=== PATIENT | female | born 1970 | race African-American/Black ===

== ENCOUNTER 2016-06-14 08:08 | Emergency (ER) | payer BC ==
[2016-06-14] MEDS ORDERED: ACETAMINOPHEN WITH CODEINE #3 TABLET PO ONE (08:42)
--- NOTE | 2016-06-14 08:43 | ER Document Report ---
ED Extremity Problem, Lower - General Chief Complaint: Leg Pain Stated Complaint: LEFT LEG PAIN Time Seen by Provider: 06/14/16 08:34 Mode of Arrival: Ambulatory Information source: Patient Notes: Patient is a 46-year-old -Romanian female who presents to the ER today for left calf/ankle pain that woke her up from sleep this morning. Patient denies any injury. She states that she does sit a lot at work and has been on multiple trips back and forth to [place], a four-hour drive recently and does also have an IUD. She denies any chest pain or shortness of breath. TRAVEL OUTSIDE OF THE [place] IN LAST 30 DAYS: No - Related Data Allergies/Adverse Reactions: Sulfa (Sulfonamide Antibiotics) Allergy (Verified 06/14/16 08:19) stomach pain Past Medical History - General Information source: Patient - Social History Smoking Status: Unknown if Ever Smoked Family History: Reviewed & Not Pertinent Patient has suicidal ideation: No Patient has homicidal ideation: No - Past Medical History Cardiac Medical History: Reports: Hx Hypertension Pulmonary Medical History: Reports: Hx Asthma Renal/ Medical History: Denies: Hx Peritoneal Dialysis Past Surgical History: Reports: Hx Section - x1 - Immunizations Hx Diphtheria, Pertussis, Tetanus Vaccination: Yes - 2012 Review of Systems - Review of Systems Constitutional: No symptoms reported EENT: No symptoms reported Cardiovascular: No symptoms reported Respiratory: No symptoms reported Gastrointestinal: No symptoms reported Genitourinary: No symptoms reported Female Genitourinary: No symptoms reported Musculoskeletal: See HPI Skin: No symptoms reported Hematologic/Lymphatic: See HPI Neurological/Psychological: No symptoms reported Physical Exam - Vital signs Vitals: Temp Pulse Resp BP Pulse Ox 98.4 F 87 18 153/108 H 99 06/14/16 08:19 06/14/16 08:19 06/14/16 08:19 06/14/16 08:19 06/14/16 08:19 - Notes Notes: PHYSICAL EXAMINATION: GENERAL: appears uncomfortable, but in no acute distress. HEAD: Atraumatic, normocephalic. EYES: Pupils equal round and reactive to light, extraocular movements intact, sclera anicteric, conjunctiva are normal. NECK: Normal range of motion, supple without lymphadenopathy LUNGS: CTAB and equal. No wheezes rales or rhonchi. HEART: Regular rate and rhythm without murmurs EXTREMITIES: tender over left calf, Romulo's sign positive, Normal range of motion, no pitting edema. No cyanosis. NEUROLOGICAL: Cranial nerves grossly intact. Normal sensory/motor exams. PSYCH: Normal mood, normal affect. SKIN: Warm, Dry, normal turgor, no ecchymosis, warmth, rashes or lesions noted Course - Re-evaluation Re-evalutation: 06/14/16 10:12 X-ray of the ankle reveals no acute pathology. doppler tech verbally reported superficial clot in greater saphenous vein of left ankle. Pt started on xarelto. 06/14/16 10:37 - Vital Signs Vital signs: Temp Pulse Resp BP Pulse Ox 98.4 F 87 18 153/108 H 99 06/14/16 08:19 06/14/16 08:19 06/14/16 08:19 06/14/16 08:19 06/14/16 08:19 Discharge - Discharge Clinical Impression: Greater saphenous vein embolism Qualifiers: Laterality: left Qualified Code(s): I82.812 - Embolism and thrombosis of superficial veins of left lower extremities Condition: Stable Disposition: HOME, SELF-CARE Additional Instructions: Please take xarelto 15mg twice daily for 21 days, following up with primary care provider before running out to see if they'd like to change regimen. Return immediately for any new or worsening symptoms such as shortness of breath or chest pain. Follow up with primary care provider, call tomorrow to make followup appointment. Prescriptions: Acetaminophen with Codeine [Tylenol #3 Tablet] 1 each PO Q4HP PRN #14 tablet PRN Reason: Rivaroxaban [Xarelto 15 mg Tablet] 15 mg PO BID #42 tablet Forms: Return to Work
[2016-06-14] MEDS ORDERED: RIVAROXABAN 15 MG TABLET PO ONE (09:59)
[2016-06-14 10:54] VITALS: BP 148/99
== END 2016-06-14 10:53 | disposition home or self-care (01) ==
LOC: ER 08:08
DX: I82.812 Embolism and thrombosis of superficial veins of left lower extremity (principal); M79.662 Pain in left lower leg; M25.572 Pain in left ankle and joints of left foot; I10 Essential (primary) hypertension; J45.909 Unspecified asthma, uncomplicated; Z30.431 Encounter for routine checking of intrauterine contraceptive device; Z88.2 Allergy status to sulfonamides
CPT/HCPCS: 93971; 99284

== ENCOUNTER 2016-07-08 22:50 | Emergency (ER) | payer BC ==
[2016-07-08] MEDS ORDERED: ASPIRIN 81 MG TABLET, CHEWABLE PO ONE (23:22)
[2016-07-08 23:54] LABS: ABSOLUTE BASOPHILS # (AUTO) 0.1 10^3/uL (0.0-0.2); ABSOLUTE EOSINOPHILS # (AUTO) 0.2 10^3/uL (0.0-0.6); ABSOLUTE LYMPHOCYTES (AUTO) 3.9 10^3/uL (0.5-4.7); ABSOLUTE MONOCYTES (AUTO) 0.8 10^3/uL (0.1-1.4); ABSOLUTE NEUT (AUTO) 6.3 10^3/uL (1.7-8.2); BASOPHILS % (AUTO) 0.8 % (0-2); HEMATOCRIT 42.4 % (36.0-47.0); HEMOGLOBIN 14.2 g/dL (12.0-15.5); HGB HCT DIFFERENCE 0.2; LYMPHOCYTES % (AUTO) 34.3 % (13-45); MEAN CORPUSCULAR HEMOGLOBIN 28.6 pg (27.0-33.4); MEAN CORPUSCULAR HGB CONC 33.5 g/dL (32.0-36.0); MEAN CORPUSCULAR VOLUME 85 fl (80-97); MONOCYTES % (AUTO) 7.1 % (3-13); RED BLOOD COUNT 4.98 10^6/uL (3.72-5.28); RED CELL DISTRIBUTION WIDTH 13.9 % (11.5-14.0); SEGMENTED NEUTROPHILS % (AUTO) 55.8 % (42-78); WHITE BLOOD COUNT 11.3 10^3/uL (4.0-10.5)
[2016-07-09 00:05] LABS: ALANINE AMINOTRANSFERASE 27 U/L (9-52); ALBUMIN 4.1 g/dL (3.5-5.0); ALKALINE PHOSPHATASE 75 U/L (38-126); ANION GAP 11 (5-19); ASPARTATE AMINO TRANSFERASE 22 U/L (14-36); BILIRUBIN,DIRECT 0.3 mg/dL (0.0-0.4); BILIRUBIN,TOTAL 0.6 mg/dL (0.2-1.3); BLOOD UREA NITROGEN 14 mg/dL (7-20); CALCIUM 10.7 mg/dL (8.4-10.2); CARBON DIOXIDE 25 mmol/L (22-30); CHLORIDE 104 mmol/L (98-107); CREATINE KINASE 63 U/L (30-135); CREATININE RESULT 0.85 mg/dL (0.52-1.25); GLUCOSE 89 mg/dL (75-110); POTASSIUM 4.1 mmol/L (3.6-5.0); SODIUM 139.5 mmol/L (137-145); TOTAL PROTEIN 7.4 g/dL (6.3-8.2)
[2016-07-09 00:17] LABS: CREATINE KINASE MB 0.41 ng/mL (<4.55)
[2016-07-09 00:18] LABS: TROPONIN I < 0.012 ng/mL
--- NOTE | 2016-07-09 01:27 | RADIOLOGY REPORT (SQ) ---
EXAM DESCRIPTION: CHEST PA/LAT COMPLETED DATE/TIME: 07/09/2016 12:20 am REASON FOR STUDY: chest tightness COMPARISON: Chest x-ray 07/04/2006. EXAM PARAMETERS: NUMBER OF VIEWS: two views TECHNIQUE: Digital Frontal and Lateral radiographic views of the chest acquired. RADIATION DOSE: NA LIMITATIONS: none FINDINGS: LUNGS AND PLEURA: No consolidation, pneumothorax or pleural effusion. MEDIASTINUM AND HILAR STRUCTURES: No masses or contour abnormalities. HEART AND VASCULAR STRUCTURES: Heart normal size. No evidence for failure. BONES: No acute findings. HARDWARE: None in the chest. IMPRESSION: No acute radiographic finding in the chest. TECHNICAL DOCUMENTATION: JOB ID: [id number] [employer]- All Rights Reserved
--- NOTE | 2016-07-09 02:49 | ER Document Report ---
ED Cardiac <PATRICK YOUNG - Last Filed: 07/09/16 03:53> - General Mode of Arrival: Ambulatory Information source: Patient TRAVEL OUTSIDE OF THE [place] IN LAST 30 DAYS: No - HPI Patient complains to provider of: Chest pain, Chest tightness, Shortness of breath Was the onset of pain: Sudden Quality of pain: Sharp, Tightness Chest pain radiation location: Right shoulder Cardiac risk factors: None Positive cardiac history: No Similar symptoms previously: No Recently seen / treated by doctor: No <SIERRA MAGANA - Last Filed: 07/09/16 04:10> - General Chief Complaint: Chest Pain Stated Complaint: CHEST TIGHTNESS Time Seen by Provider: 07/09/16 02:44 Notes: Patient is a 46 year old female presenting to the emergency department for sudden onset chest pain and shortness of breath. Patient states that at 17:30 she had chest discomfort and tightness with intermittent episodes of sharp pain. Patient states her pain was located in her right breast area and it radiated into her right shoulder. Patient states she had pain with deep breathing. Patient also complains of a headache. Patient denies any shortness of breath or chest pain at time of exam. Patient states that a few days ago she lifted a heavy mirror several times. Patient has a history of hypertension and asthma. Patient was seen in the [facility] ED on 06/14/16 for some left leg swelling and was diagnosed with a clot to the saphenous vein in her left leg. Patient was started on Xarelto. Patient is allergic to sulfa drugs. (SIERRA MAGANA) - Related Data Allergies/Adverse Reactions: Sulfa (Sulfonamide Antibiotics) Allergy (Verified 06/14/16 08:19) stomach pain Past Medical History - General Information source: Patient - Social History Smoking Status: Never Smoker Cigarette use (# per day): No Chew tobacco use (# tins/day): No Frequency of alcohol use: None Drug Abuse: None Family History: None Patient has suicidal ideation: No Patient has homicidal ideation: No - Past Medical History Cardiac Medical History: Reports: Hx Hypertension Pulmonary Medical History: Reports: Hx Asthma Past Surgical History: Reports: Hx Section - x1 - Immunizations Hx Diphtheria, Pertussis, Tetanus Vaccination: Yes - 2012 <SIERRA MAGANA - Last Filed: 07/09/16 04:10> Review of Systems - Review of Systems Constitutional: No symptoms reported EENT: No symptoms reported Cardiovascular: See HPI, Chest pain Respiratory: See HPI, Short of breath Gastrointestinal: No symptoms reported Genitourinary: No symptoms reported Female Genitourinary: No symptoms reported Musculoskeletal: No symptoms reported Skin: No symptoms reported Hematologic/Lymphatic: No symptoms reported Neurological/Psychological: No symptoms reported -: Yes All other systems reviewed and negative <SIERRA MAGANA - Last Filed: 07/09/16 04:10> Physical Exam - Vital signs Interpretation: Hypertensive - General General appearance: Appears well, Alert In distress: Mild - HEENT Head: Normocephalic, Atraumatic Eyes: Normal Pupils: PERRL Mucous membranes: Moist - Respiratory Respiratory status: No respiratory distress Chest status: Tender - Right anterior chest wall tenderness to palpation Breath sounds: Normal Chest palpation: Normal - Cardiovascular Rhythm: Regular Heart sounds: Normal auscultation Murmur: No - Abdominal Inspection: Normal Distension: No distension Bowel sounds: Normal Tenderness: Nontender Organomegaly: No organomegaly - Back Back: Normal, Tender - Right scapular musculature is tender to palpation - Extremities General upper extremity: Normal ROM, Normal strength General lower extremity: Normal inspection, Normal ROM, Normal strength Shoulder: Tender - Right trapezius musculature is tender to palpation - Neurological Neuro grossly intact: Yes Cognition: Normal Orientation: AAOx4 Jerry Coma Scale Eye Opening: Spontaneous Jerry Coma Scale Verbal: Oriented [place] Coma Scale Motor: Obeys Commands [place] Coma Scale Total: 15 Speech: Normal - Psychological Associated symptoms: Normal affect, Normal mood - Skin Skin Temperature: Warm Skin Moisture: Dry <SIERRA MAGANA - Last Filed: 07/09/16 04:10> - Vital signs Vitals: Temp Pulse Resp BP Pulse Ox 98.1 F 60 16 155/11 H 100 07/08/16 23:30 07/08/16 23:30 07/08/16 23:30 07/08/16 23:30 07/08/16 23:30 Course - Laboratory Result Diagrams: 07/08/16 23:30 07/08/16 23:30 - Diagnostic Test Radiology reviewed: Image reviewed, Reports reviewed - Chest X-ray is normal. <PATRICK YOUNG - Last Filed: 07/09/16 03:53> - Laboratory Result Diagrams: 07/08/16 23:30 07/08/16 23:30 <SIERRA MAGANA - Last Filed: 07/09/16 04:10> - Re-evaluation Re-evalutation: 07/09/16 03:52 The chest wall pain is reproducible with palpation, as is palpating the right scapular muscles and right trapezius muscle. The d-dimer is undetectable. (PATRICK YOUNG) - Vital Signs Vital signs: Temp Pulse Resp BP Pulse Ox 98.1 F 60 12 129/90 H 99 07/09/16 03:01 07/08/16 23:30 07/09/16 03:01 07/09/16 03:01 07/09/16 03:01 - Laboratory Laboratory results interpreted by me: 07/08/16 07/08/16 07/08/16 23:30 23:30 23:30 WBC 11.3 H PT 16.3 H Calcium 10.7 H Discharge <PATRICK YOUNG - Last Filed: 07/09/16 03:53> <SIERRA MAGANA - Last Filed: 07/09/16 04:10> - Discharge Clinical Impression: Chest wall pain Muscle strain, shoulder region Qualifiers: Encounter type: initial encounter Laterality: right Qualified Code(s): S46.911A - Strain of unspecified muscle, fascia and tendon at shoulder and upper arm level, right arm, initial encounter Additional Instructions: Chest Wall Pain Your chest pain has been diagnosed as coming from the chest wall. This is often caused by straining the muscles or joints in the chest during physical activity, direct trauma, coughing, or vigorous vomiting. Rest from strenuous physical activity. This kind of chest pain is usually made worse by movement of the chest. Depending on the symptoms, we may prescribe medicine for pain, muscle relaxation, and antiinflammatory effects. If the pain is new, and seems to be due to muscle strain, cold packs can help. Otherwise, apply gentle warmth to the painful area for 15 minutes every hour or two. You should contact the doctor immediately if things change. Further evaluation is needed if you develop a fever or cough, if the nature of the pain changes, or if you become short of breath. TAKE TYLENOL AND ALEVE OR MOTRIN FOR PAIN. REST. TRY MOIST HEAT. FOLLOW UP WITH YOUR DOCTOR IF NOT IMPROVING. RETURN TO THE EMERGENCY ROOM IF ANY NEW OR WORSENING SYMPTOMS. Scribe Attestation: 07/09/16 03:52 I personally performed the services described in the documentation, reviewed and edited the documentation which was dictated to the scribe in my presence, and it accurately records my words and actions. (PATRICK YOUNG) Scribe Documentation - Scribe Written by [employer]:: Scott Knapp, 07/09/16 4:10 acting as scribe for :: Gracie <SIERRA MAGANA - Last Filed: 07/09/16 04:10>
[2016-07-09 03:11] LABS: PROTHROMBIN TIME 16.3 SEC (11.4-15.4)
[2016-07-09 03:34] LABS: D-DIMER < 0.27 ug/mL (0.00-0.50)
[2016-07-09 04:00] VITALS: BP 129/90
--- NOTE | 2016-07-09 10:45 | EKG REPORT ---
SEVERITY:- NORMAL ECG - SINUS RHYTHM : Confirmed by: Ladi Lima 09-Jul-2016 10:44:59
== END 2016-07-09 04:00 | disposition home or self-care (01) ==
LOC: ER 22:50
DX: S46.911A Strain of unspecified muscle, fascia and tendon at shoulder and upper arm level, right arm, initial encounter (principal); R07.9 Chest pain, unspecified; R06.02 Shortness of breath; R51 Headache; X58.XXXA Exposure to other specified factors, initial encounter
CPT/HCPCS: 36415; 71020; 80053; 82550; 82553; 84484; 85025; 85379; 85610; 93005; 93010; 99285

== ENCOUNTER → 2016-07-26 | Outpatient (CLI) | payer BC ==
--- NOTE | 2016-07-26 12:17 | XCELERA REPORT ---
[address] [address] Lower Extremity Venous Evaluation Name: LOUISE MILLARD Age: 46 yrs Gender: Female : 1970 Patient Status: Outpatient Patient Location: Study Date: 07/26/2016 10:43 AM Procedure: Color flow and duplex imaging of the veins of the left lower extremity as well as the right Common Femoral vein. Reason For Study: LLE I82.42 Ordering Physician: MONTY NAJERA Performed By: Sriram Villarreal Right Sided Venous Evaluation The right common femoral vein is fully compressible. Spontaneous and phasic flow is present in the right common femoral vein. Left Sided Venous Evaluation Normal vessel filling wall to wall, compression and augmentation as well as Colour flow down to the infrageniculate veins. Critical Findings Called in to Dr Najera at 1216. Interpretation Summary No duplex evidence of DVT or obstruction in the left lower extremity nor in the right Common Femoral vein. : MONTY NAJERA > Aquilino Marquez
== END ==
LOC: SP 10:22
PROVIDERS: ATTEND Student in an Organized Health Care Education/Training Program
DX: I82.402 Acute embolism and thrombosis of unspecified deep veins of left lower extremity (principal)
CPT/HCPCS: 93971

== ENCOUNTER 2017-03-24 16:51 | Emergency (ER) | payer BC ==
[2017-03-24] MEDS ORDERED: NORMAL SALINE 1000 ML 1,000 ML IV PRN (18:02)
--- NOTE | 2017-03-24 18:04 | ER Document Report ---
ED Medical Screen (RME) - General Chief Complaint: Nausea Stated Complaint: NAUSEA Time Seen by Provider: 03/24/17 17:56 Mode of Arrival: Ambulatory Information source: Patient Notes: This is a 47-year-old female with no significant medical problems who presents to the emergency room with some nausea, cough (nonproductive), constipation, bloating and some generalized weakness for the past month. Past surgical history, , orthopedic Allergies: Sulfa Medicines: None TRAVEL OUTSIDE OF THE [place] IN LAST 30 DAYS: No - Related Data Allergies/Adverse Reactions: Sulfa (Sulfonamide Antibiotics) Allergy (Verified 03/24/17 16:51) stomach pain Past Medical History - Social History Chew tobacco use (# tins/day): No Frequency of alcohol use: Occasional Drug Abuse: None - Past Medical History Cardiac Medical History: Reports: Hx Hypertension Pulmonary Medical History: Reports: Hx Asthma Renal/ Medical History: Denies: Hx Peritoneal Dialysis Past Surgical History: Reports: Hx Section - x1 - Immunizations Hx Diphtheria, Pertussis, Tetanus Vaccination: Yes - 2012 Physical Exam - Vital signs Vitals: Temp Pulse Resp BP Pulse Ox 98.3 F 69 18 148/103 H 98 03/24/17 16:57 03/24/17 16:57 03/24/17 16:57 03/24/17 16:57 03/24/17 16:57 Course - Vital Signs Vital signs: Temp Pulse Resp BP Pulse Ox 98.3 F 69 18 148/103 H 98 03/24/17 16:57 03/24/17 16:57 03/24/17 16:57 03/24/17 16:57 03/24/17 16:57
[2017-03-24 18:30] LABS: APPEARANCE,URINE SLIGHTLY-CLOUDY; BILIRUBIN,URINE NEGATIVE (NEGATIVE); COLOR,URINE YELLOW; GLUCOSE, URINE NEGATIVE (NEGATIVE); KETONES,URINE NEGATIVE (NEGATIVE); LEUKOCYTE ESTERASE,URINE NEGATIVE (NEGATIVE); NITRITE,URINE NEGATIVE (NEGATIVE); PROTEIN,URINE NEGATIVE (NEGATIVE); URINE SPECIFIC GRAVITY 1.012; UROBILINOGEN,URINE NEGATIVE mg/dL (<2.0)
[2017-03-24] MEDS ORDERED: ONDANSETRON HCL INJ/PF 4 MG/2 ML SDV IV ONE (19:11)
--- NOTE | 2017-03-24 19:16 | ER Document Report ---
ED GI/ - General Chief Complaint: Nausea Stated Complaint: NAUSEA Time Seen by Provider: 03/24/17 17:56 Mode of Arrival: Ambulatory Information source: Patient Notes: 47-year-old female presents to ED for complaint of abdominal pain nausea and vomiting nonproductive cough frequent constipation bloating generalized weakness for the past month. She states that she has not had a bowel movement except for yesterday after she took Epson salt above the recommended dose. She has abdominal pain generalized tenderness. Abdomen is soft but guarding. She has positive blood in her urine does not have a history of kidney stones and is not on her menstrual cycle at this time. Manual blood pressure during exam was 152/92 TRAVEL OUTSIDE OF THE [place] IN LAST 30 DAYS: No - HPI Patient complains to provider of: Abdominal pain, Vomiting, Other - Constipation bloating nausea and vomiting and cough Onset: Other - Decreased appetite bloating nausea and vomiting states she vomited last night. States she had to take Epson salts to have a bowel movement Timing/Duration: Persistent Quality of pain: Cramping, Sharp Severity at maximum: Moderate Severity in ED: Moderate Pain Level: 3 Location: Other - Generalized abdominal pain Vaginal bleeding (Compared to normal period): None Associated symptoms: Constipation - Bloating, Loss of appetite, Nausea, Vomiting Exacerbated by: Movement, Walking Relieved by: Denies Similar symptoms previously: Yes Recently seen / treated by doctor: No - Related Data Allergies/Adverse Reactions: Sulfa (Sulfonamide Antibiotics) Allergy (Verified 03/24/17 16:51) stomach pain Past Medical History - General Information source: Patient - Social History Smoking Status: Never Smoker Cigarette use (# per day): No Chew tobacco use (# tins/day): No Smoking Education Provided: No Frequency of alcohol use: Occasional Drug Abuse: None 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 denies: COPD, DM Patient has suicidal ideation: No Patient has homicidal ideation: No - Past Medical History Cardiac Medical History: Reports: Hx Hypertension Pulmonary Medical History: Reports: Hx Asthma EENT Medical History: Reports: None Neurological Medical History: Reports: None Endocrine Medical History: Reports: None Renal/ Medical History: Reports: None Malignancy Medical History: Reports: None GI Medical History: Reports: Hx Gastritis, Other - Frequent constipation Musculoskeltal Medical History: Reports None Skin Medical History: Reports None Psychiatric Medical History: Reports: None, Hx Depression Traumatic Medical History: Reports: None Infectious Medical History: Reports: None Past Surgical History: Reports: Hx Section - x1 - Immunizations Hx Diphtheria, Pertussis, Tetanus Vaccination: Yes - 2012 Review of Systems - Review of Systems Constitutional: Recent illness EENT: Nose congestion, Nose discharge, Sinus pressure Cardiovascular: Lightheaded Respiratory: Cough Gastrointestinal: Abdomen distended, Abdominal pain, Nausea, Vomiting Genitourinary: No symptoms reported Female Genitourinary: No symptoms reported Musculoskeletal: Other - Body aches Skin: No symptoms reported Hematologic/Lymphatic: No symptoms reported Neurological/Psychological: No symptoms reported -: Yes All other systems reviewed and negative Physical Exam - Vital signs Vitals: Temp Pulse Resp BP Pulse Ox 98.3 F 69 18 148/103 H 98 03/24/17 16:57 03/24/17 16:57 03/24/17 16:57 03/24/17 16:57 03/24/17 16:57 - Notes Notes: PHYSICAL EXAMINATION: GENERAL: 47-year-old well-appearing female, well-nourished and in no acute distress. HEAD: Atraumatic, normocephalic. EYES: Pupils equal round and reactive to light, extraocular movements intact, conjunctiva are normal. ENT: Pale boggy nasal turbinates, oropharynx clear without exudates. Moist mucous membranes. NECK: Normal range of motion, supple without lymphadenopathy LUNGS: Breath sounds clear to auscultation bilaterally and equal. No wheezes rales or rhonchi. HEART: Regular rate and rhythm without murmurs ABDOMEN: Soft, generalized tenderness and distended abdomen. Generalized guarding, no rebound. No masses appreciated. Female : deferred Musculoskeletal: Normal range of motion, no pitting or edema. No cyanosis. NEUROLOGICAL: Cranial nerves grossly intact. Normal speech, normal gait. Normal sensory, motor exams PSYCH: Normal mood, normal affect. SKIN: Warm, Dry, normal turgor, no rashes or lesions noted. Course - Re-evaluation Re-evalutation: 03/25/17 01:[address] results discussed with patient. Patient was given instructions on care of a nonobstructive kidney stone and abdominal pain. Patient was discharged home to follow-up with primary doctor. Patient verbalizes understanding of instructions. - Vital Signs Vital signs: Temp Pulse Resp BP Pulse Ox 98.6 F 73 18 141/98 H 97 03/24/17 18:45 03/24/17 22:42 03/24/17 22:42 03/24/17 22:42 03/24/17 22:42 - Laboratory Result Diagrams: 03/24/17 19:45 03/24/17 19:45 Laboratory results interpreted by me: 03/24/17 03/24/17 18:01 19:45 RBC 5.32 H Urine Blood LARGE H - Diagnostic Test Radiology reviewed: Image reviewed, Reports reviewed Discharge - Discharge Clinical Impression: non-obstruction left kidney stone Abdominal pain Qualifiers: Abdominal location: generalized Qualified Code(s): R10.84 - Generalized abdominal pain Nausea & vomiting Qualifiers: Vomiting type: unspecified Vomiting Intractability: non-intractable Qualified Code(s): R11.2 - Nausea with vomiting, unspecified URI (upper respiratory infection) Qualifiers: URI type: unspecified URI Qualified Code(s): J06.9 - Acute upper respiratory infection, unspecified HTN (hypertension) Qualifiers: Hypertension type: unspecified Qualified Code(s): I10 - Essential (primary) hypertension Condition: Stable Disposition: HOME, SELF-CARE Instructions: Family Physicians / Practices Additional Instructions: ABDOMINAL PAIN: There are many causes of abdominal pain. Pain can mean a serious problem requiring surgery (such as appendicitis). It can also be an innocent problem that goes away on its own (such as a viral infection). Often, time must pass to determine the cause of pain. The physician does not feel that hospitalization is necessary, at present. Things may change within the next 24 hours. Call the doctor or come back for re- examination if any problems occur, such as: (1) Pain that becomes more severe, steady, or becomes concentrated in one specific area. Also, pain that is more severe with movement or coughing. (2) Vomiting that persists or becomes more frequent. (3) Blood in the vomitus, urine, or bowel movements. Blood in the stool may have a tarry or black appearance. (4) Shaking chills or fever greater than 100 degrees F. (5) The abdomen becomes more distended or swollen. (6) Bowel movements cease. (7) Failure to improve as expected. UPPER RESPIRATORY ILLNESS: You have a viral infection of the respiratory passages -- a "cold." This common infection causes nasal congestion, drainage, and often sore throat and cough. It is highly contagious. The disease usually lasts about 10 to 14 days. There is no "cure" for the viral infection -- it must run its course. If there is a complication, such as bacterial infection in the nose, sinuses, middle ear, or bronchial tubes, antibiotics may be required. The antibiotics won't affect the virus. Drink plenty of fluids. A humidifier may help. An expectorant medication or decongestant may make you more comfortable. Use acetaminophen or ibuprofen for fever or aches. See the doctor if fever persists over two days, if there is any significant worsening of your symptoms, or if you simply fail to improve as expected. KIDNEY STONE: You have multiple nonobstructing left kidney stones. These stones are usually due to increased calcium or uric acid concentrations in your urine. Stones within the kidney itself are not painful. The pain occurs as the stone leaves the kidney to pass down the long tube, called the ureter, leading to the bladder. If the stone is small, it will usually pass by itself. Most patients can pass the stone at home. Drink three or four quarts of fluids per day. DECONGESTANT MEDICATION: A decongestant medicine has been prescribed. Often this medicine is combined in the same tablet with an antihistamine or expectorant. This type of medicine is helpful in treating a bad cold or sinus condition, as well as in treatment of the nasal congestion of hay fever. It is not of much benefit for lung infections. Decongestant medicines are related to stimulants. They can cause an increase in blood pressure and heart rate. Persons with heart disease and high blood pressure should not take decongestants without discussing this with the physician. If you develop palpitations, chest pain, headache, or tremors, stop the medicine and consult your physician. COUGH-SUPPRESSANT & EXPECTORANT MEDICATION: You are to use a cough medication as needed for relief of symptoms. This medicine is a combination of an expectorant (to make the mucous thinner and more easily "coughed up") and a cough suppressant (to reduce the frequency of coughing). The cough-suppressant medicine is related to narcotics. You may experience mild nausea and sleepiness. Some patients who are very sensitive to narcotics may have stomach pain from this medicine. Taking the medicine with food reduces these side effects. Do not drive or work with machinery until you know how this medicine affects you. The expectorant should have no side effects. Iodine-containing expectorants (such as organidin) should not be taken by persons with active thyroid disease unless approved by your doctor. Call the doctor if you develop shortness of breath, hives, rash, itching, lightheadedness, or severe nausea and vomiting. USE OF ACETAMINOPHEN (Tylenol): Acetaminophen may be taken for pain relief or fever control. It's much safer than aspirin, offering a wider range of "safe" dosages. It is safe during . Some brand names are Tylenol, Panadol, Datril, Anacin 3, Tempra, and Liquiprin. Acetaminophen can be repeated every four hours. The following are maximum recommended dosages: >89 pounds or adults 650 mg to 900 mg Acetaminophen can be repeated every four hours. Maximum dose not to exceed 4000 mg a day. ANTINAUSEA MEDICATION: You have been given a medication to suppress nausea and vomiting. This type of medication can be given as a shot, pill, or suppository. It will usually last for many hours. Pills and shots usually last six to eight hours, suppositories last about 12 hours. For the typical illness, only one or two doses of the medication may be necessary. Mild lightheadedness may occur. This type of medicine can cause drowsiness. Do not drive or operate dangerous machinery while under its influence. Do not mix with alcohol. See your doctor at once if you have muscle spasms or tightness, or uncontrollable motions (particularly of the neck, mouth, or jaw). Persistent vomiting or severe lightheadedness should also be evaluated by the physician. Suggestions for increasing her calorie intake when you state you have no appetite were discussed with you. Please to include Ensure mixed with ice cream and [place] Instant Breakfast as a milkshake. Also frequent small meals. States she had frequent constipation. MiraLAX is a good bulk laxative that you can take in your coffee or juice twice a day for the next 2 weeks and then reduce to once a day. FOLLOW-UP CARE: If you have been referred to a physician for follow-up care, call the physician s office for an appointment as you were instructed or within the next two days. If you experience worsening or a significant change in your symptoms, notify the physician immediately or return to the Emergency Department at any time for re-evaluation. Prescriptions: Ondansetron [Zofran Odt 4 mg Tablet] 1 tab PO Q6H #15 tab.rapdis Forms: Return to Work, Elevated Blood Pressure
--- NOTE | 2017-03-24 19:40 | RADIOLOGY REPORT (SQ) ---
EXAM DESCRIPTION: CT LTD RENAL STONE PROTOCOL ON COMPLETED DATE/TIME: 03/24/2017 7:24 pm REASON FOR STUDY: abdominal pain hematuria COMPARISON: None. TECHNIQUE: CT scan of the abdomen and pelvis performed without intravenous or oral contrast. Images reviewed with lung, soft tissue, and bone windows. Reconstructed coronal and sagittal MPR images revi ewed. All images stored on PACS. All CT scanners at this facility use dose modulation, iterative reconstruction, and/or weight based d osing when appropriate to reduce radiation dose to as low as reasonably achievable (ALARA). [facility]: Dose Right [facility]: CareDose [facility]: Dose Right [facility]: Teradose 4D [facility]: Smart ReliOn RADIATION DOSE: CT Rad equipment meets quality standard of care and radiation dose reduction techniq ues were employed. CTDIvol: 4.8 mGy. DLP: 242 mGy-cm.mGy. LIMITATIONS: None. FINDINGS: LOWER CHEST: No significant findings. No nodules or infiltrates. NON-CONTRASTED LIVER, SPLEEN, ADRENALS: Evaluation limited by lack of IV contrast. No identified sign ificant masses. PANCREAS: No masses. No peripancreatic inflammatory changes. GALLBLADDER: No identified stones by CT criteria. No inflammatory changes to suggest cholecystitis. RIGHT KIDNEY AND URETER: No suspicious masses. Assessment limited by lack of IV contrast. No signif icant calcifications. No hydronephrosis or hydroureter. LEFT KIDNEY AND URETER: No suspicious masses. Assessment limited by lack of IV contrast. Multiple n onobstructing left renal calculi. No hydronephrosis or hydroureter. AORTA AND RETROPERITONEUM: No aneurysm. No retroperitoneal masses or adenopathy. BOWEL AND PERITONEAL CAVITY: No obvious masses or inflammatory changes. No free fluid. APPENDIX: Not visualized. PELVIS, BLADDER, AND ABDOMINAL WALL:No abnormal masses. No free fluid. Bladder normal. BONES: No significant findings. OTHER: No other significant finding. IMPRESSION: LEFT-SIDED NEPHROLITHIASIS WITHOUT LOWER URINARY TRACT STONES OR HYDRONEPHROSIS. COMMENT: Quality ID # [id number]: Final reports with documentation of one or more dose reduction techniques (e.g., Automated exposure control, adjustment of the mA and/or kV according to patient size, use of iterative reconstruction technique) TECHNICAL DOCUMENTATION: JOB ID: [id number] [email or web address]- All Rights Reserved
[2017-03-24 20:36] LABS: ABSOLUTE EOSINOPHILS # (AUTO) 0.1 10^3/uL (0.0-0.6); ABSOLUTE LYMPHOCYTES (AUTO) 3.6 10^3/uL (0.5-4.7); ABSOLUTE MONOCYTES (AUTO) 0.7 10^3/uL (0.1-1.4); BASOPHILS % (AUTO) 0.3 % (0-2); EOSINOPHILS % (AUTO) 1.1 % (0-6); HEMATOCRIT 43.9 % (36.0-47.0); HEMOGLOBIN 14.8 g/dL (12.0-15.5); LYMPHOCYTES % (AUTO) 38.3 % (13-45); MEAN CORPUSCULAR HEMOGLOBIN 27.9 pg (27.0-33.4); MEAN CORPUSCULAR HGB CONC 33.8 g/dL (32.0-36.0); MEAN CORPUSCULAR VOLUME 83 fl (80-97); MONOCYTES % (AUTO) 7.8 % (3-13); PLATELET COUNT 307 10^3/uL (150-450); RED BLOOD COUNT 5.32 10^6/uL (3.72-5.28); RED CELL DISTRIBUTION WIDTH 13.9 % (11.5-14.0); SEGMENTED NEUTROPHILS % (AUTO) 52.5 % (42-78); TOTAL CELLS COUNTED % (AUTO) 100 %; WHITE BLOOD COUNT 9.5 10^3/uL (4.0-10.5)
[2017-03-24 20:57] LABS: ALANINE AMINOTRANSFERASE 35 U/L (9-52); ALBUMIN 3.8 g/dL (3.5-5.0); ALKALINE PHOSPHATASE 61 U/L (38-126); ANION GAP 9 (5-19); ASPARTATE AMINO TRANSFERASE 21 U/L (14-36); BILIRUBIN,DIRECT 0.4 mg/dL (0.0-0.4); BILIRUBIN,TOTAL 0.5 mg/dL (0.2-1.3); BLOOD UREA NITROGEN 9 mg/dL (7-20); CALCIUM 9.9 mg/dL (8.4-10.2); CARBON DIOXIDE 22 mmol/L (22-30); CHLORIDE 106 mmol/L (98-107); GLUCOSE 76 mg/dL (75-110); POTASSIUM 3.8 mmol/L (3.6-5.0); SODIUM 137.2 mmol/L (137-145); TOTAL PROTEIN 6.6 g/dL (6.3-8.2)
[2017-03-24 22:43] VITALS: BP 141/98
== END 2017-03-24 22:42 | disposition home or self-care (01) ==
LOC: ER 16:51
DX: N20.0 Calculus of kidney (principal); J06.9 Acute upper respiratory infection, unspecified; R10.84 Generalized abdominal pain; R11.2 Nausea with vomiting, unspecified; I10 Essential (primary) hypertension; R05 Cough; K59.00 Constipation, unspecified; R53.1 Weakness; R14.0 Abdominal distension (gaseous); R31.9 Hematuria, unspecified
CPT/HCPCS: 99284; 96361; 96374; 36415; 84443; 85025; 81025; 80053; 81001; 76380; J2405; J7030

== ENCOUNTER 2018-02-02 11:47 | Emergency (ER) | payer BC ==
[2018-02-02 11:53] VITALS: BP 155/96
[2018-02-02] MEDS ORDERED: PREDNISONE 20 MG TABLET PO ONE (12:36)
--- NOTE | 2018-02-02 12:37 | ER Document Report ---
ED Medical Screen (RME) - General Chief Complaint: Chest Congestion Stated Complaint: FEVER/NAUSEA/DIFFICULTY BREATHING Time Seen by Provider: 02/02/18 12:35 Notes: Patient says she is been having difficulty breathing, especially when laying do wn. Her problem began about 9 days ago when she developed an upper respiratory infection with sore throat, cough, sneezing, and postnasal drip. She also had fever. Most all of the symptoms have subsided now except she still has a remaining cough. She has been told in the past that she might be a pre-asthma and has albuterol that she is using with some relief. Not much phlegm produced. Not have any fever. No history of any heart disease. No history of blood clots. Does not smoke. TRAVEL OUTSIDE OF THE [place] IN LAST 30 DAYS: No - Related Data Allergies/Adverse Reactions: Sulfa (Sulfonamide Antibiotics) Allergy (Verified 02/02/18 11:49) stomach pain Past Medical History - Social History Cigarette use (# per day): No Family history: Reviewed & Not Pertinent - Past Medical History Cardiac Medical History: Reports: Hx Hypertension Pulmonary Medical History: Reports: Hx Asthma GI Medical History: Reports: Hx Gastritis Psychiatric Medical History: Reports: Hx Depression Past Surgical History: Reports: Hx Section - x1, Hx Orthopedic Surgery - Immunizations Hx Diphtheria, Pertussis, Tetanus Vaccination: Yes - 2012 Review of Systems - Review of Systems Notes: CONSTITUTIONAL : Denies fever. CARDIOVASCULAR: Denies chest pain. RESPIRATORY: See HPI. GASTROINTESTINAL: Denies abdominal pain or nausea, vomiting, or diarrhea. GENITOURINARY: Denies difficulty or painful urinating, urinary frequency, blood in urine. Physical Exam - Vital signs Vitals: Temp Pulse Resp BP Pulse Ox 98.4 F 87 16 155/96 H 98 02/02/18 11:51 02/02/18 11:51 02/02/18 11:51 02/02/18 11:51 02/02/18 11:51 Interpretation: Normal Notes: PHYSICAL EXAMINATION: GENERAL: Well-appearing, no acute distress. HEAD: Atraumatic, normocephalic. NECK: Normal range of motion, supple. LUNGS: Breath sounds clear and equal bilaterally. A few scattered wheezes can be heard in the upper back region. HEART: Regular rate and rhythm without murmurs heard. No peripheral edema. ABDOMEN: Soft, nontender. No guarding or rebound or masses felt. Course - Vital Signs Vital signs: Temp Pulse Resp BP Pulse Ox 98.4 F 87 16 155/96 H 98 02/02/18 11:51 02/02/18 11:51 02/02/18 11:51 02/02/18 11:51 02/02/18 11:51 - Diagnostic Test Radiology results interpreted by me: 02/02/18 21:13 Chest x-ray is normal. No pneumonia. Doctor's Discharge - Discharge Clinical Impression: URI (upper respiratory infection), Viral illness Condition: Stable Disposition: HOME, SELF-CARE Additional Instructions: UPPER RESPIRATORY ILLNESS: You have a viral infection of the respiratory passages -- a "cold." This common infection causes nasal congestion, drainage, and often sore throat and cough. It is highly contagious. The disease usually lasts about 10 to 14 days. There is no "cure" for the viral infection -- it must run its course. If there is a complication, such as bacterial infection in the nose, sinuses, middle ear, or bronchial tubes, antibiotics may be required. The antibiotics won't affect the virus. Drink plenty of fluids. A humidifier may help. An expectorant medication or decongestant may make you more comfortable. Use acetaminophen or ibuprofen for fever or aches. See the doctor if fever persists over two days, if there is any significant worsening of your symptoms, or if you simply fail to improve as expected. BRONCHOSPASM: You have tightness in the bronchial tubes, called bronchospasm. This often occurs with bronchial infections. Allergies, inhaled chemicals, and polluted or cold air can also provoke bronchospasm. It's more likely in patients with asthma in the family. Emergency treatment of bronchospasm may include adrenaline shots or bronchodilator aerosol. You may feel lightheaded and have a rapid pulse for an hour or two. Rest and get plenty of fluids. At home, we'll treat you with a bronchodilator inhaler. Antibiotics and corticosteroids may be required for some patients. Until you recover, avoid chem ical fumes, dusts, pollens, and exercising in very cold or dry air. If you smoke, stop now!! If you develop a fever, increased wheezing, chest pain, or severe shortness of breath, you should contact the doctor immediately. Continue to use your INHALED BRONCHODILATORS: You have received a treatment of and/or prescription for an inhaled bronchodilator -- a medication which stimulates the airways in the lung to dilate. This improves the flow of air in asthma, bronchitis, and emphysema. These medicines have some similarity to adrenaline, and can cause similar side effects: shakiness, racing heart, and a sense of nervousness. These side effects decrease with time. Contact your doctor if these side effects are severe. Do not over-use the medicine. Too-frequent use of the inhaler may make it ineffective. Call your doctor if the inhaler is not controlling your symptoms at the prescribed doses. STEROID MEDICATION: You have been given an injection of or oral medicine of the cortisone/steroid class. This medication is used to control inflammation or allergy. Dariel t is usually only given for a short period of time, until the acute process subsides. There are usually no side effects from short-term use of cortisone-like medications. Some persons feel an increased sense of well-being and are not sleepy at bedtime. Long-term use of cortisone medications is best avoided, unless required for a severe condition. If your condition does not remit, or relapses after the course of corticosteroid medication, you should consult your physician. FOLLOW-UP CARE: If you have been referred to a physician for follow-up care, call the physicians office for an appointment as you were instructed or within the next two days. If you experience worsening or a significant change in your symptoms, notify the physician immediately or return to the Emergency Department at any time for re-evaluation. Prescriptions: Prednisone [Deltasone 10 mg Tablet] 10 mg PO ASDIR PRN #21 tablet PRN Reason: Referrals: LOCALMD,NO [Primary Care Provider] - Follow up as needed
--- NOTE | 2018-02-02 12:55 | RADIOLOGY REPORT (SQ) ---
EXAM DESCRIPTION: CHEST 2 VIEWS COMPLETED DATE/TIME: 02/02/2018 12:46 pm REASON FOR STUDY: Difficulty breathing COMPARISON: None. EXAM PARAMETERS: NUMBER OF VIEWS: two views TECHNIQUE: Digital Frontal and Lateral radiographic views of the chest acquired. RADIATION DOSE: NA LIMITATIONS: none FINDINGS: LUNGS AND PLEURA: No opacities, masses or pneumothorax. No pleural effusion. MEDIASTINUM AND HILAR STRUCTURES: No masses or contour abnormalities. HEART AND VASCULAR STRUCTURES: Heart normal size. No evidence for failure. BONES: No acute findings. HARDWARE: None in the chest. OTHER: No other significant finding. IMPRESSION: NO ACUTE RADIOGRAPHIC FINDING IN THE CHEST. TECHNICAL DOCUMENTATION: JOB ID: [id number] [employer]- All Rights Reserved Reading location - IP/workstation name: [email or web address]
== END 2018-02-02 14:09 | disposition home or self-care (01) ==
LOC: ER 11:47
DX: J06.9 Acute upper respiratory infection, unspecified (principal); R06.00 Dyspnea, unspecified; R11.0 Nausea; R50.9 Fever, unspecified; I10 Essential (primary) hypertension; Z88.2 Allergy status to sulfonamides
CPT/HCPCS: 99283; 71046; J7512

== ENCOUNTER → 2019-11-13 | Outpatient (CLI) | payer BC ==
[2019-11-13 10:11] VITALS: BP 129/85
--- NOTE | 2019-11-13 10:11 | ER [facility] ASSESSMENT REPORT ---
Intake - In the Last 14 days Have you traveled outside [place]?: No Have you been in close contact with someone CONFIRMED: No Worked in Healthcare?: Yes - Symptoms Subjective Fever([place] feverish): No Chills: No Muscule Aches: No Runny Nose: Yes Sore Throat: No Cough (New or worsening chronic cough): No Shortness of breath: No Nausea or Vomiting: No Headache: Yes Abdominal Pain: No Diarrhea(3 or more loose stools in last 24 hours): No - Do you have any of the following Chronic lung disease: Asthma or emphysema or COPD: No Cystic Fibrosis: No Diabetes: No High Blood Pressure: Yes Cardiovascular Disease: No Chronic Kidney Disease: No Chronic Liver Disease: No Chronic blood disorder like Sickle Cell Disease: No Weak immune system due to disease or medication: No Neurologic condition that limits movement: No Developmental delay - Moderate to Severe: No Recent (within past 2 weeks) or current : No Morbid Obesity (>100 pounds over ideal weight): No - Objective Temperature: 98.4 F Pulse Rate: 77 Respiratory Rate: 18 Blood Pressure: 129/85 O2 Sat by Pulse Oximetry: 95 Objective: Given above, testing performed: If Testing Performed: Test Specimen Type Sent to General - General Information source: Patient Notes: Patient presents to the [facility] for screening for the coronavirus. Patient reports having runny nose dry cough and headache. Patient reports sneezing and sinus pressure. Patient does work in healthcare. - Related Data Allergies/Adverse Reactions: Sulfa (Sulfonamide Antibiotics) Allergy (Verified 02/02/18 11:49) stomach pain Past Medical History - General Information source: Patient - Social History Smoking Status: Never Smoker Family History: Arthritis, CAD, CVA, Hyperlipidemia, Hypertension, Malignancy, Thyroid Disfunction. denies: COPD, DM - Past Medical History Cardiac Medical History: Reports: Hx Hypertension Renal/ Medical History: Denies: Hx Peritoneal Dialysis GI Medical History: Reports: Hx Gastritis Psychiatric Medical History: Reports: Hx Depression Past Surgical History: Reports: Hx Section - x1, Hx Orthopedic Surgery Physical Exam - Notes Notes: The patient was evaluated during the global Covid 19 pandemic, and that diagnosis was suspected/considered upon their initial presentation. Their evaluation, treatment and testing was consistent with current guidelines for patients who present with complaints or symptoms that may be related to Covid 19. Full physical exam could not be performed due to covid 19 isolation protocols. Constitutional: Nontoxic appearance, no acute distress Eyes: Nonicteric, extraocular movements intact, sclera clear Cardiovascular: Heart rate and rhythm regular, no JVD Respiratory: Breath sounds clear bilaterally, nonlabored breathing, no use of accessory muscles, no tachypnea Gastrointestinal: Abdomen not distended Muculoskeletal: Moves all extremities well Skin: Normal color Neuro: Awake alert oriented, normal speech Psych: Normal mood and affect Diagnostic Results Laboratory Results: patient presents with upper respiratory symptoms worrisome for possible Covid 19. Patient does not have emergency worrying symptoms such as difficulty breathing, shortness of breath, chest pain, pressure, confusion or cyanosis. Patient appears suitable for discharge as vital signs are stable and patient is nontoxic in appearance. Good return precautions have been discussed with patient, patient verbalized understanding and is agreeable with discharge plan of care at this time. Patient Education/Counseling Counseling/Education: Patient was provided with discharge information including: As a person under investigation for Covid 19, the [facility], division of public health advises you to adhere to the following guidance until your test results are reported to you. If your test result is positive, you will receive additional information from your provider and your local health department at that time. Remain at home until you are cleared by the health provider or public health authorities. Keep a log of visitors to your home, notify any visitors to your home of your isolation status. If you plan to move to a new address or leave the county, notify the local health department in your County. Call your doctor or seek care if you have an urgent medical need. Before seeking medical care, call ahead to get instructions from the provider before arriving at the medical office clinic or hospital. Notify them that you are being tested for the virus that causes Covid 19 so that arrangements can be made, as necessary, to prevent transmission to others in the healthcare setting. Next, notify the local health department in your county. If a medical emergency arises and you need to call 911, inform the first responders that you are being tested for the virus that causes Covid 19. Next, notify the local health department in your county. [facility] Discharge - Discharge Clinical Impression: Encounter for screening laboratory testing for COVID-19 virus Condition: Stable Disposition: Home; Selfcare
[2019-11-13 14:46] LABS: A TYPE INFLUENZA AG NEGATIVE (NEGATIVE); B INFLUENZA AG NEGATIVE (NEGATIVE)
== END ==
LOC: RDC 09:36
PROVIDERS: ATTEND Nurse Practitioner Family
DX: Z20.828 Contact with and (suspected) exposure to other viral communicable diseases (principal); R09.89 Other specified symptoms and signs involving the circulatory and respiratory systems; R05 Cough; R51.9 Headache, unspecified; I10 Essential (primary) hypertension; Z88.1 Allergy status to other antibiotic agents
CPT/HCPCS: 87070; 87880; 87804; U0003; C9803; 87635